=== PATIENT | female | born 1985 | race Caucasian/White ===

== ENCOUNTER 2016-10-08 21:45 | Emergency (ER) | payer OTHER ==
[2016-10-08 22:24] LABS: HEMOGLOBIN 14.3 gm/dl (12.3-15.3); RED BLOOD COUNT 4.59 M/UL (4.00-5.10); WHITE BLOOD COUNT 10.2 K/UL (4.5-11.0)
[2016-10-08 22:56] LABS: BUN/CREATININE RATIO 35 (0-10)
== END 2016-10-08 23:00 | disposition home or self-care (01) ==
LOC: ER1 21:45
PROVIDERS: Emergency Medicine
DX: F41.9 Anxiety disorder, unspecified (principal); F11.23 Opioid dependence with withdrawal; R07.89 Other chest pain; F17.200 Nicotine dependence, unspecified, uncomplicated
CPT/HCPCS: 36415; 71010; 80053; 80307; 82550; 82553; 83874; 84484; 84703; 85025; 85379; 93005; 99284